=== PATIENT | male | born 1960 | race Caucasian/White ===

== ENCOUNTER 2021-04-28 09:08 | Emergency (ER) | payer OTHER, SELFPAY ==
--- NOTE | ~2021-04-28 | CT_ITS ---
EXAMINATION: CT BRAIN W/O DATE: 04/28/2021 10:11 INDICATION: Arm and leg numbness. TECHNIQUE: Computed tomography (CT) of the head was performed without intravenous contrast. The dose- length product was 605.33 mGy-cm. Automated exposure control and iterative reconstruction technique w ere employed. COMPARISON: No prior studies for comparison. FINDINGS: Normal brain parenchymal volume for age. Normal carl-white differentiation. No acute intrac ranial hemorrhage, infarction, mass or mass effect. No ventriculomegaly or midline shift. Midline sagittal images demonstrate a normal corpus callosum, c raniovertebral junction and sella turcica. Basilar cisterns are patent. Paranasal sinuses and mastoids are pneumatized. No depressed skull fractures. IMPRESSION: 1. No acute intracranial abnormality. Reviewed, dictated and finalized at location A.
--- NOTE | ~2021-04-28 | CT_ITS ---
EXAMINATION: CT cervical spine wo con DATE: 04/28/2021 10:11 INDICATION: Lower extremity numbness and sagittal anesthesia TECHNIQUE: Computed tomography (CT) of the cervical spine was performed without intravenous contrast. The dose-length product was 395 mGy-cm. Automated exposure control and iterative reconstruction tech nique were employed. COMPARISON: No prior studies for comparison. FINDINGS: There is degenerative anterolisthesis at C2-3 and C3-4. There is fusion at C4-5. There is s evere degenerative disc disease at C5-6 and C6-7 and to a lesser degree C7. Odontoid process is clinton l within normal limits. Moderate multilevel uncinate and to a lesser degree facet hypertrophy. Lung a pices are unremarkable. There is carotid atherosclerosis. No acute fracture or traumatic malalignment . IMPRESSION: 1. Severe cervical spondylosis with reversal of cervical lordosis. Reviewed, dictated and finalized at location A.
--- NOTE | ~2021-04-28 | CT_ITS ---
EXAMINATION: CT lumbar spine wo con DATE: 04/28/2021 10:11 INDICATION: Low back pain. Numbness. Sagittal anesthesia. TECHNIQUE: Computed tomography (CT) of the lumbar spine was performed without intravenous contrast. T he dose-length product was 484.39 mGy-cm. Automated exposure control and iterative reconstruction yenny hnique were employed. COMPARISON: MRI dated 01/14/2018 FINDINGS: There is levocurvature of the lumbar spine centered at L4. There is disc narrowing with vac uum phenomena at L4-5 and L5-S1. No acute fracture, subluxation or dislocation. There is grade 1 dege nerative spondylolisthesis at L4-5. There is disc bulging at L2-3, L3-4, L4-5 and L5-S1. There is javan ateral facet osteoarthritis of these levels, most severe at L4-5 and L5-S1. There is bilateral neural foraminal stenosis at each of these levels with central canal stenosis at L3-4, L4-5 and L5-S1. Ther e is atherosclerosis of the aorta. No acute fracture or traumatic malalignment is identified. IMPRESSION: 1. Severe lumbar spondylosis. Reviewed, dictated and finalized at location A.
[2021-04-28 09:16] VITALS: BP 116/57; PULSE 76; RESP 20; TEMP 36.6; O2SAT 98
[2021-04-28 10:04] LABS: Basophils Absolute Auto 0.1 K/mm3 (0.0-0.1); Basophils Percent Auto 0.6 % (0.2-1.2); Eosinophils Absolute Auto 0.1 K/mm3 (0-0.3); Eosinophils Percent Auto 1.7 % (0-4.4); Hematocrit 42.5 % (42.0-52.0); Hemoglobin 14.4 g/dL (14.0-18.0); Immature Granulocyte Absolute 0.03 K/mm3 (0.00-0.031); Immature Granulocyte Percent A 0.4 % (0-0.5); Lymphocytes Absolute Auto 0.94 K/mm3 (0.9-3.2); Lymphocytes Percent Auto 11.3 % (18.3-44.2); Mean Corpuscular HGB Conc 33.9 g/dl (32-36); Mean Corpuscular Hemoglobin 30.5 pg (26-34); Mean Platelet Volume 9.2 fl (7.4-10.4); Monocytes Absolute Auto 0.8 K/mm3 (0.1-0.6); Neutrophils Absolute Auto 6.4 K/mm3 (1.3-6.7); Platelet Count Result 232 k/mm3 (150-375); Red Blood Count 4.72 M/mm3 (4.6-6.20); Red Cell Distribution Width 13.2 % (11.5-14.5); White Blood Count 8.3 K/mm3 (4.5-10.0)
[2021-04-28 10:13] LABS: Anion Gap 10 mmol/L (8-16); Blood Urea Nitrogen 35 mg/dL (9-20); Calcium 9.8 mg/dL (8.4-10.2); Carbon Dioxide 25 mmol/L (22-30); Chloride 99 mmol/L (98-107); Estimated CRCL calculation 68 ml/min; Estimated Glomerular Filt Rate > 60; Glucose 111 mg/dL (65-110); Potassium 3.5 mmol/L (3.4-5.0); Sodium 134 mmol/L (137-145)
[2021-04-28 12:06] VITALS: BP 125/78; PULSE 63; RESP 18; O2SAT 99
--- NOTE | 2021-04-28 12:53 | ED.BACK ---
HPI - Back Pain/Injury General Chief Complaint: Back Pain/Injury Stated Complaint: BILATERAL HANDS NUMB, BACK PAIN Time Seen by Provider: 04/28/21 09:31 History of Present Illness HPI Narrative: Patient is a 60-year-old male who presents ER with upper and lower extremity numbness and lower extremity weakness. Progressive over the last 10 days. Patient has history of chronic sciatica in his right lower extremity. Reports he has started having pins and needle feelings in his hands approximately 10 days ago. This was associated with increased numbness in his lower extremities at the same time. He has tried seeing a chiropractor without improvement. He has pain in his cervical spine when he touches his chin to his chest. No fevers or chills or sweats. No new rashes. No known trauma. He has history of prostate cancer with radical prostatectomy in 2017. Undetectable PSA 6 months ago. Patient had cervical spine x-rays at his chiropractor which were read as having degenerative disease. Reports over the last couple days numbness has increased in his extremities and since last night he has had difficulty walking. He feels like his legs are weak but he also cannot sense the floor when he is trying to walk and he is unable to tie his shoes due to numbness in his hands. No incontinence of bowel or bladder. Related Data Home Medications Medication Instructions Recorded Confirmed atorvastatin 20 mg tablet 20 mg PO DAILY tablet 02/28/21 02/28/21 fenofibrate 160 mg tablet 160 mg PO DAILY tablet 02/28/21 02/28/21 finasteride 1 mg tablet 1 mg PO DAILY tablet 02/28/21 02/28/21 icosapent ethyl 1 gram capsule 2 g PO BID cap 02/28/21 02/28/21 lisinopril 10 mg tablet 10 mg PO DAILY tablet 02/28/21 02/28/21 metoprolol tartrate 100 1 tablet PO DAILY tablet 02/28/21 02/28/21 mg-hydrochlorothiazide 25 mg tablet Allergies Allergy/AdvReac Type Severity Reaction Status Date / Time No Known Allergies Allergy Mild Verified 04/28/21 09:22 Review of Systems Review of Systems: All systems reviewed & are unremarkable except as noted in HPI and below Constitutional: Constitutional: Denies chills, Denies fever(s) and Denies weakness ENT: Denies nasal congestion and Denies sore throat Musculoskeletal: Musculoskeletal: Reports back pain (Lumbar and cervical.), Denies arthralgias and Denies muscle cramps Neurologic: Denies syncope, Denies headache(s), Denies focal weakness, Reports numbness and Reports weakness PMFSH Past Medical History Medical History Chronic low back pain with right-sided sciatica CKD (chronic kidney disease) stage 3, GFR 30-59 ml/min Dyslipidemia Dysrhythmia Erectile dysfunction Essential (primary) hypertension Hair loss History of fractured pelvis - 1975 History of prostate cancer Incisional hernia without mention of obstruction or gangrene Surgical History Surgical History History of appendectomy (~02/2008) 02/2008 History of prostatectomy (07/03/17) 07/03/2017 Family History Family History Father Acute myocardial infarction, Onset Age: 49 Social History Social History Smoking status: Former smoker Second hand tobacco smoke exposure: No Smoking end date: 09/22/06 Alcohol intake: current Alcohol use details: 1 drink of gin consumed daily Substance use: never Substance use type: does not use Exam Narrative: GENERAL: Well-appearing, well-nourished, and in no acute distress. HEAD: Normocephalic, atraumatic. Neck: Supple, pain with touching chin to chest. Rotation of the head to left and right intact with palpable grinding midline of the neck. No reproducible tenderness with palpation. CHEST: Clear to auscultation. No respiratory distress. HEART: Reg
[2021-04-28 14:52] VITALS: BP 132/78; PULSE 78; RESP 18; O2SAT 99
== END 2021-04-28 14:54 | disposition short-term general hospital (02) ==
PROVIDERS: Emergency Provider Emergency Medicine; PCP Family Medicine
DX: M47.12 Other spondylosis with myelopathy, cervical region (principal); I12.9 Hypertensive chronic kidney disease with stage 1 through stage 4 chronic kidney disease, or unspecified chronic kidney disease; N18.30 Chronic kidney disease, stage 3 unspecified; E78.5 Hyperlipidemia, unspecified; M54.41 Lumbago with sciatica, right side; Z87.891 Personal history of nicotine dependence; Z85.46 Personal history of malignant neoplasm of prostate; M47.816 Spondylosis without myelopathy or radiculopathy, lumbar region; Z90.79 Acquired absence of other genital organ(s)
CPT/HCPCS: 36415; 70450; 72125; 72131; 80048; 85025; 99284; 99285

== ENCOUNTER → 2021-09-27 11:39 | Outpatient (CLI) | payer OTHER, SELFPAY ==
--- NOTE | ~2021-09-27 | MR_ITS ---
EXAMINATION: MR lumbar spine wo con DATE: 09/27/2021 12:20 INDICATION: Low back pain. Lumbar radiculopathy. TECHNIQUE: Magnetic resonance imaging (MRI) of the lumbar spine was performed without intravenous con trast. Sequences included sagittal T2-weighted FSE, sagittal T2-weighted FS FSE, sagittal T1-weighted FSE, and axial T2-weighted FSE. COMPARISON: Lumbar spine MRI 01/14/2018 FINDINGS: There is 7 degrees dextrocurvature of lumbar spine. There is 7 mm anterolisthesis of L4 on L5. There are Schmorl's nodes at multiple levels. There is mildly decreased disc height at L3-L4 and severely decreased disc height at L4-L5 and L5-S1 with endplate remodeling. The distal spinal cord si gnal intensity is normal. The conus medullaris is at L1. The following disc levels are specifically d iscussed: L1-L2: The disc does not extend beyond the endplate margin. There is mild bilateral facet joint osteo arthritis. There is no neural foraminal stenosis. There is no central canal stenosis. L2-L3: There is a left foraminal protrusion. There is mild bilateral facet joint osteoarthritis. Ther e is mild left neural foraminal stenosis. There is no central canal stenosis. L3-L4: The disc is bulging and has an annular fissure. There is severe bilateral facet joint osteoart hritis. There is moderate bilateral neural foraminal stenosis. There is mild central canal stenosis. L4-L5: The disc is bulging and has an annular fissure. There is severe bilateral facet joint osteoart hritis. There is moderate bilateral neural foraminal stenosis. There is severe central canal stenosis . L5-S1: The disc is bulging and has an annular fissure. There is moderate bilateral facet joint osteoa rthritis. There is moderate bilateral neural foraminal stenosis. There is mild central canal stenosis . IMPRESSION: 1. Severe lower lumbar spondylosis, worsened from 01/14/2018. Reviewed, dictated and finalized at location A. [facility]
== END ==
PROVIDERS: PCP Family Medicine; Visit Provider Nurse Practitioner Adult Health
DX: M47.27 Other spondylosis with radiculopathy, lumbosacral region (principal); M48.07 Spinal stenosis, lumbosacral region
CPT/HCPCS: 72148

== ENCOUNTER 2022-09-11 12:49 | Outpatient (CLI) | payer OTHER, SELFPAY ==
--- NOTE | ~2022-09-11 | PE_ITS ---
EXAMINATION: PET_PETPSMAST_PT DATE: 09/11/2022 14:40 INDICATION: Ligament neoplasm of the prostate TECHNIQUE: 9.871 mCi of pipflufolastat F-18 (18-F-DCFPyL) was administered i.v. Low dose computed to mography (CT) images were acquired from the base of the brain to the base of the brain to the proxima l thighs for attenuation correction and anatomic localization. Positron emission tomography (PET) johan ges were acquired in the same distribution beginning 79 minutes after injection. Images including fus ed PET/CT images were reconstructed in axial, coronal, and sagittal planes. Automated exposure contro l technique was employed. The dose-length product was 732.11mGy-cm. COMPARISON: None FINDINGS: Head/neck: Typical pattern of symmetric physiologic increased activity in the lacrimal, parotid and submandibula r glands as well as along the mucosa of the oropharynx and nasopharynx. No pathologically enlarged ce rvical lymphadenopathy or suspicious foci of increased uptake in the visualized head or neck. Chest: Mild atelectasis at the bilateral lung bases. Calcified right lower lobe nodule along with calcified right hilar lymphadenopathy consistent with old granulomatous disease. No suspicious pulmonary nodule s, pneumonia, pulmonary edema or pleural effusion. Heart size is normal. Atherosclerotic coronary art pb calcific location. No pericardial effusion. Thoracic aorta is normal in caliber. No pathologicall y enlarged PSMA avid facet thoracic lymphadenopathy. Abdomen/pelvis/proximal thighs: Physiologic renal accumulation and excretion of activity in the kidneys, bladder and along portions o f ureters. Status post prostatectomy with surgical clips about the prostatectomy bed. Normal degree a nd slightly heterogenous pattern of increased uptake throughout the liver and spleen without radiolog ic correlate or dominant PSMA avid lesion. The gallbladder, pancreas and bilateral adrenal glands are normal. Mild scattered diverticulosis without adjacent inflammatory stranding to suggest diverticuli tis. Mild to moderate uptake scattered throughout the bowels with typical duodenal predominance and w ithout radiologic correlate, also likely physiologic. There is a approximately 2 x 1 cm hyperdense no dule along the superficial margin of the left gluteus kory muscle with maximal SUV of 2.9. No othe r abnormal foci of increased uptake or pathologically enlarged lymphadenopathy in the abdomen, pelvis or proximal thighs. Musculoskeletal: Combined instrumented anterior and posterior spinal fusion in the cervical spine. Severe lower lumbar spondylosis. There are no lytic, blastic or PSMA avid bone lesions. No other skeletal muscle lesions . IMPRESSION: 1. Indeterminate approximately 2 x 1 cm lesion in the left gluteus kory muscle which is slightly h yperdense relative to the surrounding muscle and with mild increased PSMA activity. Would consider fu rther evaluation with either pre and postcontrast MRI or if visible by ultrasound, ultrasound-guided biopsy. 2. No other PSMA avid lesions suspicious for metastatic disease. Reviewed, dictated and finalized at location A. [facility] RN IMPRESSION: 1. Indeterminate approximately 2 x 1 cm lesion in the left gluteus kory musc le which is slightly hyperdense relative to the surrounding muscle and with mil d increased PSMA activity. Would consider further evaluation with either pre an d postcontrast MRI or if visible by ultrasound, ultrasound-guided biopsy. 2. No other PSMA avid lesions suspicious for metastatic disease.
== END 2022-09-11 12:50 | disposition home or self-care (01) ==
PROVIDERS: PCP Family Medicine; Visit Provider Urology
DX: C61 Malignant neoplasm of prostate (principal); M62.9 Disorder of muscle, unspecified
CPT/HCPCS: 78815; A9595

== ENCOUNTER 2023-01-07 10:15 | Outpatient (CLI) | payer BC, SELFPAY | END 2023-01-07 10:16 | disposition home or self-care (01) | LOC: ANHLAB 10:17 | PROVIDERS: PCP Family Medicine; Visit Provider Nurse Practitioner Family | DX: R19.7 Diarrhea, unspecified (principal) | CPT/HCPCS: 87045; 87177; 87209; 87427 ==

== ENCOUNTER 2023-02-05 00:26 | Day surgery (SDC) | payer BC, SELFPAY ==
[2023-01-23 14:13] VITALS: BMI 25.1
--- NOTE | 2023-02-04 16:30 | PM.HPGS ---
History of Present Illness History of Present Illness Consent: Risks, benefits, and alternatives have been discussed and questions answered. Patient agrees to proceed with procedure. Chief complaint: diarrhea Narrative: Robson Moreland is a 62 year old male with a change in bowel habits. He began having diarrhea in November. Stool studies were all negative. He tried Imodium which did not help. Then he began to see blood in his stools. His typical pattern now is that he will have an urgent bowel movement is soon as he wakes up or he actually may wake up needing to have a bowel movement.? He will have another bowel movement after he gets on a treadmill and again after breakfast and again after lunch and consequently has the least 4 or more loose stools each day. [facility] Past Medical History Medical History Cervical arthritis with myelopathy Chronic low back pain Dyslipidemia Dysrhythmia Erectile dysfunction Essential (primary) hypertension Hair loss History of fractured pelvis - 1975 History of prostate cancer Incisional hernia without mention of obstruction or gangrene Surgical History Surgical History History of appendectomy (~02/2008) 02/2008 History of prostatectomy (07/03/17) 07/03/2017 Hx of cervical spine surgery (~04/2021) Family History Family History Father Acute myocardial infarction, Onset Age: 49 Social History Social History Smoking packs per day: 1 Smoking cigarettes per day: 20.0 Years smoked: 20 Smoking pack-years: 20.00 Smoking status: Former smoker Tobacco type: cigarettes Second hand tobacco smoke exposure: No Smoking end date: 09/22/06 Alcohol intake: current Alcohol use details: cocktail every night Substance use: never Substance use type: does not use Lack of Transportation: No Lack of Food: Never True Current Housing: I Have Housing Concerned About Future Housing: No Difficulty Paying Gas/Electric Bills: No Difficulty Paying for Meds: No Currently Unemployed: No Education: Bachelor's Degree Difficulty w/ Childcare or Family Care: No Living arrangements: with family Occupation/Education: occupation Additional occupation/education comments: Semi-retired Gender identity (if verbalized by the patient): Male Spiritual care concerns: No Agree to blood products: Yes Meds Home Medications and Allergies Home Medications Medication Instructions Recorded Confirmed Type tadalafil 5 mg tablet (Cialis) 5 mg PO DAILY 04/02/22 01/23/23 History finasteride 1 mg tablet 1 mg PO DAILY #90 tabs 07/15/22 01/23/23 Rx atorvastatin 20 mg tablet 20 mg PO QHS #90 tabs 10/07/22 01/23/23 Rx fenofibrate 160 mg tablet 160 mg PO DAILY #90 tabs 10/07/22 01/23/23 Rx lisinopril 10 mg tablet 10 mg PO DAILY #90 tabs 10/07/22 01/23/23 Rx metoprolol tartrate 100 1 tablet PO DAILY #90 tabs 10/07/22 01/23/23 Rx mg-hydrochlorothiazide 25 mg tablet gabapentin 300 mg capsule 300 mg PO BID 10/31/22 01/23/23 History aspirin 81 mg PO DAILY 01/23/23 01/23/23 History Allergies Allergy/AdvReac Type Severity Reaction Status Date / Time No Known Allergies Allergy Mild Verified 01/23/23 14:13 Assessment and Plan Assessment and plan (1) Chronic diarrhea: Code(s): K52.9 - Noninfective gastroenteritis and colitis, unspecified Status: Acute Assessment and Plan: Colonoscopy with possible biopsy or polypectomy or cautery or injection of substances.
[2023-02-05 12:30] VITALS: BP 116/71; PULSE 62; RESP 18; TEMP 36.3; O2SAT 99
[2023-02-05] MEDS: LACTATED RINGERS 1,000 ML 150 ML IV CONT (12:44)
--- NOTE | 2023-02-05 12:48 | WPDANESEPPF ---
Anes - Initial Pre Proc Eval Procedure: Operation Date: 02/05/23 13:45 Proposed Procedures p Colonoscopy - Ty Son MD Date/Time: 02/05/23 12:48 Surgeon: Ty Son MD Pre Op Diagnosis: diarrhea Patient Data Age: 62 Gender: M Height: 1.83 m Weight: 82.9 kg Last Vital Signs Temp 97.4 F L 02/05/23 12:30 Pulse 62 02/05/23 12:30 Resp 18 02/05/23 12:30 BP 116/71 02/05/23 12:30 Pulse Ox 99 02/05/23 12:30 O2 Del Method Room Air 02/05/23 12:30 Allergies Allergy/AdvReac Type Severity Reaction Status Date / Time No Known Allergies Allergy Mild Verified 02/05/23 12:28 Home Medications Medication Instructions Recorded Confirmed Type tadalafil 5 mg tablet (Cialis) 5 mg PO DAILY 04/02/22 01/23/23 History finasteride 1 mg tablet 1 mg PO DAILY #90 tabs 07/15/22 01/23/23 Rx atorvastatin 20 mg tablet 20 mg PO QHS #90 tabs 10/07/22 01/23/23 Rx fenofibrate 160 mg tablet 160 mg PO DAILY #90 tabs 10/07/22 01/23/23 Rx lisinopril 10 mg tablet 10 mg PO DAILY #90 tabs 10/07/22 01/23/23 Rx metoprolol tartrate 100 1 tablet PO DAILY #90 tabs 10/07/22 01/23/23 Rx mg-hydrochlorothiazide 25 mg tablet gabapentin 300 mg capsule 300 mg PO BID 10/31/22 01/23/23 History aspirin 81 mg PO DAILY 01/23/23 01/23/23 History Patient hx anesthesia problems: none Family hx anesthesia problems: none Results Review: All pre-operative results and documents have been reviewed as part of the pre-operative evaluation. [facility] Past Medical History Medical History Cervical arthritis with myelopathy Chronic low back pain Dyslipidemia Dysrhythmia Erectile dysfunction Essential (primary) hypertension Hair loss History of fractured pelvis - 1975 History of prostate cancer Incisional hernia without mention of obstruction or gangrene Surgical History Surgical History History of appendectomy (~02/2008) 02/2008 History of prostatectomy (07/03/17) 07/03/2017 Hx of cervical spine surgery (~04/2021) Family History Family History Father Acute myocardial infarction, Onset Age: 49 Social History Social History Smoking packs per day: 1 Smoking cigarettes per day: 20.0 Years smoked: 20 Smoking pack-years: 20.00 Smoking status: Former smoker Tobacco type: cigarettes Second hand tobacco smoke exposure: No Smoking end date: 09/22/06 Alcohol intake: current Alcohol use details: cocktail every night Substance use: never Substance use type: does not use Lack of Transportation: No Lack of Food: Never True Current Housing: I Have Housing Concerned About Future Housing: No Difficulty Paying Gas/Electric Bills: No Difficulty Paying for Meds: No Currently Unemployed: No Education: Bachelor's Degree Difficulty w/ Childcare or Family Care: No Living arrangements: with family Occupation/Education: occupation Additional occupation/education comments: Semi-retired Gender identity (if verbalized by the patient): Male Spiritual care concerns: No Agree to blood products: Yes Anes - Eval Final PreProcedure Day of Procedure 02/05/23 12:48 Patient weight: normal Heart: regular rate and rhythm Lungs: clear to auscultation Airway: Mallampati scale class II Neurological: alert and oriented Last oral intake: >/= 8 hours ASA classification: III Emergent: no Anesthetic plan: proceed Anesthesia type and monitoring: general GIVS and standard monitoring Results Review: All pre-operative results and documents have been reviewed as part of the pre-operative evaluation. Informed Consent: The patient's anesthetic plan and its attendant risks and benefits were discussed with the patient/family/POA. Questions were solicited and answers p
[2023-02-05] MEDS: SIMETHICONE ORAL SUSPENSION 20 MG/0.3 ML 30 ML BOTTLE 0.6 ML IRRIGATION (13:16)
[2023-02-05 13:28] VITALS: BP 115/59; PULSE 68; RESP 19; O2SAT 100
[2023-02-05 13:38] VITALS: BP 123/60; PULSE 62; RESP 17; O2SAT 100
[2023-02-05 13:48] VITALS: BP 125/69; PULSE 57; RESP 19; O2SAT 100
== END 2023-02-05 13:57 | disposition home or self-care (01) ==
PROVIDERS: PCP Family Medicine; Visit Provider Internal Medicine Gastroenterology
PROC: 0DJD8ZZ Inspection of Lower Intestinal Tract, Via Natural or Artificial Opening Endoscopic (ICD-10-PCS; CPT 45378; principal; 2023-02-05 13:45)
DX: K52.832 Lymphocytic colitis (principal); I10 Essential (primary) hypertension; E78.5 Hyperlipidemia, unspecified; K64.8 Other hemorrhoids; M47.12 Other spondylosis with myelopathy, cervical region; M54.50 Low back pain, unspecified; G89.29 Other chronic pain; Z85.46 Personal history of malignant neoplasm of prostate; Z87.891 Personal history of nicotine dependence; Z79.82 Long term (current) use of aspirin
CPT/HCPCS: 45380; 88305; J2704; J7120

== ENCOUNTER 2024-07-01 13:38 | Outpatient (CLI) | payer MEDICARE, SELFPAY ==
--- NOTE | ~2024-07-01 | MR_ITS ---
EXAMINATION: MR cervical spine wo con DATE: 07/01/2024 14:08 INDICATION: Fusion of spine cervical region. Numbness in hand. TECHNIQUE: Magnetic resonance imaging (MRI) of the cervical spine was performed without intravenous c ontrast. COMPARISON: CT cervical spine 04/28/2021 FINDINGS: There is kyphosis of cervical spine. There is 9 degrees levocurvature of cervicothoracic sp ine. There is severely decreased disc height from C3-C4 through C6-C7 with interbody fusion. There is severely decreased disc height at C7-T1. There are changes of posterior fusion procedure from C2 to T2 with lateral mass screws and pedicle screws. There is increased T2-weighted signal intensity in th e spinal cord at C3-C4, consistent with myelomalacia. The following disc levels are specifically disc ussed: C2-C3: The disc does not extend beyond the endplate margin. There is no uncovertebral joint osteoarth ritis. There is mild left facet joint hypertrophy. There is mild left neural foraminal stenosis. Ther e is no central canal stenosis. C3-C4: There is mild bilateral uncovertebral joint hypertrophy. There is no facet joint hypertrophy. There is no neural foraminal stenosis. There is mild central canal stenosis. C4-C5: There is moderate bilateral uncovertebral joint hypertrophy. There is no facet joint hypertrop hy. There is mild right neural foraminal stenosis. There is no central canal stenosis. C5-C6: There is moderate bilateral uncovertebral joint hypertrophy. There is no facet joint hypertrop hy. There is mild right neural foraminal stenosis. There is no central canal stenosis. C6-C7: There is moderate bilateral uncovertebral joint hypertrophy. There is mild right facet joint h ypertrophy. There is mild right neural foraminal stenosis. There is no central canal stenosis. C7-T1: The disc does not extend beyond the endplate margin. There is mild bilateral uncovertebral renetta nt hypertrophy. There is mild bilateral facet joint hypertrophy. There is mild bilateral neural namita inal stenosis. There is no central canal stenosis. IMPRESSION: 1. Posterior fusion procedure from C2 to T2. 2. Mild cervical spondylosis. Reviewed, dictated and finalized at location A.
== END 2024-07-01 13:39 | disposition home or self-care (01) ==
PROVIDERS: PCP Family Medicine; Visit Provider Orthopaedic Surgery Orthopaedic Surgery of the Spine
DX: M43.22 Fusion of spine, cervical region (principal); M43.02 Spondylolysis, cervical region; Z98.1 Arthrodesis status
CPT/HCPCS: 72141

== ENCOUNTER 2024-07-19 09:36 | Outpatient (CLI) | payer MEDICARE, SELFPAY ==
--- NOTE | ~2024-07-19 | CT_ITS ---
EXAMINATION: CT cervical spine wo con DATE: 07/19/2024 10:00 INDICATION: Neck pain. TECHNIQUE: Computed tomography (CT) of the cervical spine was performed without intravenous contrast. Automated exposure control and iterative reconstruction technique were employed. The dose-length pro duct was 407.07 mGy-cm. COMPARISON: CT cervical spine 04/28/2021 FINDINGS: There is a small left mastoid effusion. There is kyphosis of cervical spine. There is 2 mm anterolisthesis of C3 on C4. There is 12 degrees levoscoliosis of cervicothoracic spine. There is int erbody fusion from C3-C4 through C6-C7 with anterior plate and screws at C3-C4. There is severely dec reased disc height at C7-T1. There are changes of posterior fusion procedure from C2 to T2 with later al mass screws and pedicle screws. No fracture. The following disc levels are specifically discussed: C2-C3: There is no uncovertebral joint osteoarthritis. There is mild bilateral facet joint hypertroph y. There is no neural foraminal stenosis. There is no central canal stenosis. C3-C4: There is mild bilateral uncovertebral joint hypertrophy. There is mild right and moderate left facet joint hypertrophy. There is mild bilateral neural foraminal stenosis. There is mild central ca nal stenosis. C4-C5: There is severe bilateral uncovertebral joint hypertrophy. There is mild bilateral facet joint hypertrophy. There is mild bilateral neural foraminal stenosis. There is no central canal stenosis. There is posterior decompression. C5-C6: There is severe bilateral uncovertebral joint hypertrophy. There is moderate right and mild le ft facet joint hypertrophy. There is mild right neural foraminal stenosis. There is no central canal stenosis. C6-C7: There is severe bilateral uncovertebral joint hypertrophy. There is mild bilateral facet joint hypertrophy. There is mild bilateral neural foraminal stenosis. There is mild central canal stenosis with posterior decompression. C7-T1: There is no uncovertebral joint hypertrophy. There is moderate bilateral facet joint hypertrop hy. There is mild bilateral neural foraminal stenosis. There is no central canal stenosis. IMPRESSION: 1. Anterior fusion from C3 to C7 and posterior fusion from C2 to T2. 2. Cervical kyphosis and cervicothoracic levoscoliosis. 3. Mild cervical spondylosis. Reviewed, dictated and finalized at location B.
== END 2024-07-19 09:37 | disposition home or self-care (01) ==
PROVIDERS: PCP Family Medicine; Visit Provider Orthopaedic Surgery Orthopaedic Surgery of the Spine
DX: M43.22 Fusion of spine, cervical region (principal); Z98.1 Arthrodesis status; M47.892 Other spondylosis, cervical region
CPT/HCPCS: 72125

== ENCOUNTER 2024-08-16 11:54 | Outpatient (NON) | payer MEDICARE, SELFPAY | END 2024-08-16 11:55 | disposition home or self-care (01) | LOC: ANHLAB 11:55 | PROVIDERS: PCP Family Medicine; Visit Provider Nurse Practitioner Family | DX: K52.9 Noninfective gastroenteritis and colitis, unspecified (principal) | CPT/HCPCS: 82653; 83993 ==

== ENCOUNTER 2024-12-10 14:39 | Outpatient (CLI) | payer MEDICARE, SELFPAY ==
--- NOTE | ~2024-12-10 | CT_ITS ---
EXAMINATION: CT lumbar spine wo con DATE: 12/10/2024 15:03 INDICATION: Spondylosis without myelopathy or radiculopathy. TECHNIQUE: Computed tomography (CT) of the lumbar spine was performed without intravenous contrast. A utomated exposure control and iterative reconstruction technique were employed. The dose-length produ ct was 656.89 mGy-cm. COMPARISON: Lumbar spine CT 04/28/2021 FINDINGS: There is 6 degrees levocurvature of lumbar spine. There is 3 mm retrolisthesis of L2 on L3 and L3 on L4 and 6 mm anterolisthesis of L4 on L5. Vertebral body heights are normal. There is modera tely decreased disc height at L3-L4 and severely decreased disc height at L4-L5 and L5-S1. The follo wing disc levels are specifically discussed: L1-L2: The disc does not extend beyond the endplate margin. There is mild bilateral facet joint osteo arthritis. There is no neural foraminal stenosis. There is no central canal stenosis. L2-L3: The disc is bulging. There is mild bilateral facet joint osteoarthritis. There is mild bilater al neural foraminal stenosis. There is mild central canal stenosis. L3-L4: The disc is bulging. There is moderate bilateral facet joint osteoarthritis. There is moderate bilateral neural foraminal stenosis. There is moderate central canal stenosis. L4-L5: The disc is bulging. There is severe bilateral facet joint osteoarthritis. There is moderate b ilateral neural foraminal stenosis. There is severe central canal stenosis. L5-S1: The disc is bulging. There is severe bilateral facet joint osteoarthritis. There is moderate b ilateral neural foraminal stenosis. There is mild central canal stenosis. IMPRESSION: 1. Severe lower lumbar spondylosis with mild interval worsening at L3-L4. Reviewed, dictated and finalized at location A.
== END 2024-12-10 14:40 | disposition home or self-care (01) ==
LOC: MICIMG 14:40
PROVIDERS: PCP Family Medicine; Visit Provider Orthopaedic Surgery Orthopaedic Surgery of the Spine
DX: M47.816 Spondylosis without myelopathy or radiculopathy, lumbar region (principal)
CPT/HCPCS: 72131